=== PATIENT | male | born 1990 | race Caucasian/White ===

== ENCOUNTER 2022-01-01 09:41 | Emergency (ER) | payer MEDICAID ==
[~2022-01-01] VITALS: Ht 177.8 cm; Wt 88.5 kg
[2022-01-01 09:44] VITALS: BP 133/70
--- NOTE | 2022-01-01 09:53 | NUR ---
31 y/o male bib self, pt presents to ed with c/o anxiety for 48 hours, states he has been unable to sleep. denies harm to self or others, denies any si at this time, denies auditory or visual hallucinations. denies nausea, vomiting, diarrhea. skin is pink/warm/dry. a&o x4 with even and steady gait. lungs clear bl, heart rate even and regular. pt denies any fever, cp, sob, or cough at this time. pt states pain is 0/10 at this time. vss. patient positioned for comfort. hob elevated. bed down. ermd made aware of pt. pmh: anxiety, restless leg syndrome, akinesia allergy: musinex med: gabapentin, abilify, hydroxizine, benadryl, propanaolol
--- NOTE | 2022-01-01 10:05 | NUR ---
ISAURO MORTENSEN AT BEDSIDE FOR EVALUATION
[2022-01-01] MEDS ORDERED: TRAZ-343 PO (10:44)
[2022-01-01] MEDS ORDERED: ATI.5 PO (10:44)
--- NOTE | 2022-01-01 10:44 | NUR ---
PT AMBULATORY TO RESTROOM
--- NOTE | 2022-01-01 10:47 | NUR ---
PT AMBULATORY BACK TO ROOM
--- NOTE | 2022-01-01 10:55 | NUR ---
Patient discharged with v/s stable. Written and verbal after care instructions FOR INSOMNIA AND PANIC ATTACK given and explained. Patient alert, oriented and verbalized understanding of instructions. Ambulatory with steady gait. All questions addressed prior to discharge. ID band removed. Patient advised to follow up with PMD. Rx of ATIVAN AND TRAZODONE given. Opportunity to ask questions provided and answered. NO NURSING CARE RENDERED
--- NOTE | 2022-01-01 10:56 | NUR ---
Chart checked and completed. The patient's care was reviewed and supervised by Oksana Javed RN.
== END 2022-01-01 10:55 | disposition home or self-care (01) ==
LOC: MED 09:41
DX: F41.9 Anxiety disorder, unspecified (principal); G47.00 Insomnia, unspecified; R03.0 Elevated blood-pressure reading, without diagnosis of hypertension; F32.A Depression, unspecified; Z88.8 Allergy status to other drugs, medicaments and biological substances
CPT/HCPCS: 99283

== ENCOUNTER 2022-01-01 17:42 | Emergency (ER) | payer MEDICAID ==
[~2022-01-01] VITALS: Ht 177.8 cm; Wt 85.3 kg
[~2022-01-01 17:42] MED LIST: ATI.5 PO; TRAZ-343 PO
[2022-01-01 17:49] VITALS: BP 128/74
[2022-01-01] MEDS ORDERED: diphenhydrAMINE 50 MG/ML VIAL IM ONE (19:35)
[2022-01-01] MEDS ORDERED: HALOPERIDOL IM 5 MG/ML VIAL IM ONE (19:35)
--- NOTE | 2022-01-01 20:00 | NUR ---
Patient discharged with v/s stable. Written and verbal after care instructions given and explained. Patient verbalized understanding. Ambulatory with steady gait. All questions addressed prior to discharge. Advised to follow up with PMD.
== END 2022-01-01 19:50 | disposition home or self-care (01) ==
LOC: MED 17:42
DX: F11.20 Opioid dependence, uncomplicated (principal); Z88.8 Allergy status to other drugs, medicaments and biological substances
CPT/HCPCS: 96372; 99284; J1200; J1630